=== PATIENT | female | born 1945 | race Caucasian/White ===

== ENCOUNTER 2021-08-01 16:33 | Inpatient (IN) | payer OTHER, SELFPAY ==
[~2021-08-01] VITALS: Ht 167.6 cm; Wt 49.9 kg
--- NOTE | 2021-08-01 16:35 | NUR ---
BIBA TO ER BED 6
[2021-08-01 16:37] VITALS: BP 120/64
--- NOTE | 2021-08-01 16:37 | NUR ---
75 y/o female BIBA for c/o abd pain. Pt is AOX4, able to make all needs known. Resp even and unlabored, 95% on RA. C/O 10/10 abd sharp pain at this time. + BS heard x 4, pt denies N/V/D at this time. Pt denies CP at this time. Denies any black or red stool at this time Pt arrived with IV in place, non patent, painful when flushing and unable to use at this time. Per EMS her B/P was 82/53 en route to ER. Pmhx: GI bleed, enterovesical fistula, anemia, UTI Allergies: PCN Home meds: See chart
--- NOTE | 2021-08-01 17:00 | NUR ---
HOMERO made aware that there is no IV access at this time.
[2021-08-01] MEDS ORDERED: NACL 0.9% 1,000 ML IV ONE (17:05)
[2021-08-01] MEDS ORDERED: PANTOPRAZOLE 80 MG in NACL 0.9% 100 ML IVP SCH (17:05)
--- NOTE | 2021-08-01 17:20 | NUR ---
XRAY AT PATIENT BEDSIDE
--- NOTE | 2021-08-01 17:57 | NUR ---
Lab at bedside to obtain lab specimen.
[2021-08-01 18:00] LABS: HEMATOCRIT 33.1 % (36-48); HEMOGLOBIN 10.6 g/dL (12.0-16.0); MEAN CORPUSCULAR HEMOGLOBIN 28 pg (27-31); MEAN CORPUSCULAR HGB CONC 32 g/dL (33-37); MEAN CORPUSCULAR VOLUME 87.3 fL (80-94); PLATELET COUNT (AUTO) 533 K/uL (140-450); RED BLOOD CELL COUNT(AUTO) 3.79 MIL/uL (4.20-5.40); RED CELL DISTRIBUTION WIDTH 18.4 % (11.6-13.7); WHITE BLOOD COUNT (AUTO) 21.8 K/uL (4.8-10.8)
--- NOTE | 2021-08-01 18:08 | NUR ---
Lab able to obtain blood specimens at this time.
[2021-08-01 18:27] LABS: LYMPHOCYTES % (MANUAL) 2 % (20-46)
[2021-08-01 18:28] LABS: MONOCYTES % (MANUAL) 2 % (5-12)
[2021-08-01 18:30] LABS: PROTHROMBIN TIME 10.4 secs (10.8-13.4)
[2021-08-01 18:31] LABS: ALBUMIN 2.4 g/dL (3.4-5.0); ANION GAP 16.1 (8-16); ASPARTATE AMINOTRANSFERASE 18 U/L (15-37); CARBON DIOXIDE 23.8 mmol/L (21-32); CHLORIDE 95 mmol/L (98-107); CREATININE 1.3 mg/dL (0.6-1.3); GLUCOSE 87 mg/dL (74-106); SODIUM SERUM 132 mmol/L (136-145); TOTAL BILIRUBIN 0.4 mg/dL (0.0-1.0); UREA NITROGEN, BLOOD 20 mg/dL (7-18)
[2021-08-01 18:34] LABS: POTASSIUM 2.9 mmol/L (3.5-5.1)
--- NOTE | 2021-08-01 18:39 | NUR ---
HOMERO reminded that we are unable to obtain IV access at this time
--- NOTE | 2021-08-01 19:00 | NUR ---
HOMERO Miranda at bedside to attempt to insert US guided IV, unable to obtain access at this time.
--- NOTE | 2021-08-01 19:04 | NUR ---
CT made aware that pt is ready for moss picker.
--- NOTE | 2021-08-01 19:26 | NUR ---
CALLED LOCOMOTIVE REPAIRER [facility] AND REQUEST PICC LINE FOR PATIENT
--- NOTE | 2021-08-01 19:26 | NUR ---
Pt report given to GALE Garduno. Transfer of care at this time.
--- NOTE | 2021-08-01 19:28 | NUR ---
Texted PICC RN for PICC placement. Waiting for PICC RN to text or call back
[2021-08-01] MEDS ORDERED: levoFLOXacin 500 MG TAB PO ONE (20:45)
[2021-08-01] MEDS ORDERED: HYDROcodone/APAP 5/325 MG 1 TAB TAB PO ONE (20:45)
[2021-08-01] MEDS ORDERED: levoFLOXacin 500 MG TAB ONE (22:21)
[2021-08-01] MEDS ORDERED: HYDROcodone/APAP 5/325 MG 1 TAB TAB ONE (22:21)
--- NOTE | 2021-08-01 22:48 | NUR ---
PT USED RESTROOM AND STATED SHE HAD DARK RED BLOOD IN STOOL.
[2021-08-01] MEDS ORDERED: MORPHINE SULFATE 2 MG/ML SYR IVP PRN (23:30)
[2021-08-01] MEDS ORDERED: ONDANSETRON 4 MG/2 ML VIAL IVP PRN (23:30)
[2021-08-02] MEDS ORDERED: MORPHINE SULFATE 2 MG/ML SYR IVP ONE (00:50)
--- NOTE | 2021-08-02 02:49 | NUR ---
D5/0.45 NS WAS STARTED AT 0249 AND DISCONTINUED AFTER RIGHT AC IV INFILTRATED. IV HELD UNTIL ANOTHER ACCESS CAN BE OBTAINED.
[2021-08-02] MEDS: DEXT 5% / NACL 0.45% 1,000 ML IV SCH ×2 (02:50→13:48)
--- NOTE | 2021-08-02 06:59 | NUR ---
PATIENT HAS BEEN SCREENED AND CATEGORIZED MODERATE NUTRITION RISK. PATIENT WILL BE SEEN WITHIN 3-5 DAYS OF ADMISSION. 08/05/21-08/07/21 ROMULO DIAMOND MS, RDN
[2021-08-02] MEDS ORDERED: SODIUM PHOS / POTASSIUM PHOS 1 PKT PDR PO PRN (07:10)
[2021-08-02] MEDS ORDERED: DOCUSATE SODIUM 100 MG GELCAP PO PRN (07:10)
[2021-08-02] MEDS ORDERED: MAG SULF 2000 MG/WATER PREMIX 50 ML IV PRN (07:10)
[2021-08-02] MEDS ORDERED: ONDANSETRON 4 MG/2 ML VIAL IVP PRN (07:10)
[2021-08-02] MEDS ORDERED: ACETAMINOPHEN 325 MG TAB PO PRN (07:10)
[2021-08-02] MEDS ORDERED: POTASSIUM CHLORIDE 10 MEQ TABER PO ONE (07:10)
[2021-08-02] MEDS ORDERED: POTASSIUM CHLORIDE 10 MEQ TABER PO PRN (07:10)
[2021-08-02] MEDS ORDERED: ZOLPIDEM 5 MG TAB PO PRN (07:10)
[2021-08-02 07:19] LABS: ALBUMIN 1.9 g/dL (3.4-5.0); ANION GAP 12.5 (8-16); ASPARTATE AMINOTRANSFERASE 18 U/L (15-37); CARBON DIOXIDE 25.8 mmol/L (21-32); CHLORIDE 101 mmol/L (98-107); GLUCOSE 75 mg/dL (74-106); POTASSIUM 3.3 mmol/L (3.5-5.1); SODIUM SERUM 136 mmol/L (136-145); TOTAL BILIRUBIN 0.4 mg/dL (0.0-1.0); UREA NITROGEN, BLOOD 23 mg/dL (7-18)
--- NOTE | 2021-08-02 07:29 | NUR ---
CORTNEY RAMÍREZ AT BEDSIDE FOR US GUIDED IV.
--- NOTE | 2021-08-02 07:30 | NUR ---
REPORT RECEIVED FROM GALE BURCH FOR CONTINUITY OF CARE.
--- NOTE | 2021-08-02 07:30 | NUR ---
REPORT GIVEN TO JACK BEASLEY.
[2021-08-02 07:33] LABS: BASOPHILS # (AUTO) 0.1 K/uL (0.00-0.22); BASOPHILS % (AUTO) 0.5 % (0.0-2.0); HEMATOCRIT 28.3 % (36-48); HEMOGLOBIN 9.1 g/dL (12.0-16.0); LYMPHOCYTES # (AUTO) 1.1 K/uL (2.5-16.5); LYMPHOCYTES % (AUTO) 5.5 % (20.5-51.1); MEAN CORPUSCULAR HEMOGLOBIN 28 pg (27-31); MEAN CORPUSCULAR HGB CONC 32 g/dL (33-37); MEAN CORPUSCULAR VOLUME 86.4 fL (80-94); MONOCYTES # (AUTO) 0.7 K/uL (0.8-1.0); MONOCYTES % (AUTO) 3.7 % (1.7-9.3); NEUTROPHILS # (AUTO) 17.4 K/uL (1.8-7.7); NEUTROPHILS % (AUTO) 90.3 % (42.2-75.2); PLATELET COUNT (AUTO) 662 K/uL (140-450); RED BLOOD CELL COUNT(AUTO) 3.27 MIL/uL (4.20-5.40); WHITE BLOOD COUNT (AUTO) 19.3 K/uL (4.8-10.8)
--- NOTE | 2021-08-02 07:50 | NUR ---
[place] SPECIMEN COLLECTED AND TAKEN TO LAB
[2021-08-02] MEDS ORDERED: POTASSIUM CHLORIDE 10 MEQ TABER PO SCH (07:54)
--- NOTE | 2021-08-02 08:40 | NUR ---
PATIENT GIVEN BREAKFAST, NO DISTRESS NOTED. ALL PATIENT NEEDS MET AT THIS TIME.
[2021-08-02] MEDS ORDERED: PANTOPRAZOLE 40 MG INJ VIAL IVP SCH (09:00)
[2021-08-02 10:04] LABS: PROTHROMBIN TIME 10.2 secs (10.8-13.4)
[2021-08-02 10:14] LABS: CHOL/HDL RATIO 2.4 (1-4.5); FREE T4 (FREE THYROXINE) 1.09 ng/dL (0.76-1.46); PHOSPHORUS 4.5 mg/dL (2.5-4.9); THYROID STIMULATING HORMONE 0.92 uIU/mL (0.34-3.74)
[2021-08-02] MEDS: PANTOPRAZOLE 40 MG INJ VIAL IVP SCH ×2 (10:26→23:07)
[2021-08-02] MEDS: MORPHINE SULFATE 2 MG/ML SYR IVP PRN (11:45)
[2021-08-02] MEDS: HYDROcodone/APAP 5/325 MG 1 TAB TAB PO PRN (16:12)
--- NOTE | 2021-08-02 17:37 | NUR ---
PICC LINE CONSENT OBTAINED
--- NOTE | 2021-08-02 19:24 | NUR ---
Pt report given to GALE LEA . Transfer of care at this time.
--- NOTE | 2021-08-02 19:31 | NUR ---
patient ambulated to the bathroom with assist.
--- NOTE | 2021-08-02 21:36 | NUR ---
patient ambulated to the bathroom with assist and to collect urine.
--- NOTE | 2021-08-03 00:31 | NUR ---
patient complaining of pain 10/10 lower abdominal-- will medicated patient with PRN medication.
[2021-08-03] MEDS: HYDROcodone/APAP 5/325 MG 1 TAB TAB PO PRN ×2 (00:34→15:13)
--- NOTE | 2021-08-03 01:10 | NUR ---
patient ambulated to the bathroom with assist.
--- NOTE | 2021-08-03 01:26 | NUR ---
hooked patient back on the monitors and fluids. safety measures are in place, attached to monitor and will continue to monitor patient
[2021-08-03] MEDS: DEXT 5% / NACL 0.45% 1,000 ML IV SCH ×2 (04:06→19:08)
--- NOTE | 2021-08-03 04:39 | NUR ---
Patient appears to be resting comfortably in bed- Low fowlers, eyes closed and O2 attached at 3L. Medication fluids running through. Vital Signs within normal limits. Respirations even and unlabored. No signs of distress noted. Safety measures in place, attached to the monitor and will continue to monitor patient.
--- NOTE | 2021-08-03 07:25 | NUR ---
Pt report given to Ivonne BEAUCHAMP. Transfer of care at this time.
--- NOTE | 2021-08-03 07:30 | NUR ---
REPORT RECEIVED FROM GALE LEA FOR PATIENT CONTINUITY OF CARE.
--- NOTE | 2021-08-03 08:00 | NUR ---
PATIENT AMBULATED W/ ASSIST TO RESTROOM.
[2021-08-03] MEDS: PANTOPRAZOLE 40 MG INJ VIAL IVP SCH ×2 (11:30→21:37)
[2021-08-03] MEDS: MORPHINE SULFATE 2 MG/ML SYR IVP PRN ×3 (11:30→22:34)
[2021-08-03 12:15] LABS: ALBUMIN 1.5 g/dL (3.4-5.0); ANION GAP 11.7 (8-16); ASPARTATE AMINOTRANSFERASE 9 U/L (15-37); CARBON DIOXIDE 20.7 mmol/L (21-32); CHLORIDE 102 mmol/L (98-107); GLUCOSE 86 mg/dL (74-106); MAGNESIUM 1.4 mg/dL (1.8-2.4); POTASSIUM 3.4 mmol/L (3.5-5.1); SODIUM SERUM 131 mmol/L (136-145); TOTAL BILIRUBIN 0.3 mg/dL (0.0-1.0); UREA NITROGEN, BLOOD 29 mg/dL (7-18)
[2021-08-03 12:54] LABS: BASOPHILS # (AUTO) 0.1 K/uL (0.00-0.22); BASOPHILS % (AUTO) 0.6 % (0.0-2.0); EOSINOPHILS % (AUTO) 0.1 % (0.0-4.0); HEMATOCRIT 21.6 % (36-48); MEAN CORPUSCULAR HEMOGLOBIN 28 pg (27-31); MEAN CORPUSCULAR HGB CONC 32 g/dL (33-37); MEAN CORPUSCULAR VOLUME 86.1 fL (80-94); MONOCYTES # (AUTO) 0.8 K/uL (0.8-1.0); MONOCYTES % (AUTO) 4.4 % (1.7-9.3); NEUTROPHILS # (AUTO) 17.2 K/uL (1.8-7.7); PLATELET COUNT (AUTO) 499 K/uL (140-450); RED BLOOD CELL COUNT(AUTO) 2.51 MIL/uL (4.20-5.40); RED CELL DISTRIBUTION WIDTH 17.7 % (11.6-13.7); WHITE BLOOD COUNT (AUTO) 19.2 K/uL (4.8-10.8)
[2021-08-03 13:18] LABS: LYMPHOCYTES % (AUTO) 5.2 % (20.5-51.1); NEUTROPHILS % (AUTO) 89.7 % (42.2-75.2)
--- NOTE | 2021-08-03 13:40 | NUR ---
PATIENT AMBULATED TO RESTROOM WITH ASSISTANCE
--- NOTE | 2021-08-03 13:50 | NUR ---
ASSISTED PATIENT BACK TO BEDSIDE, PROVIDED WITH WET WIPES FOR HYGIENE, ASSISTED IN POSITION OF COMFORT, SAFETY MEASURES PUT IN PLACE AND CONNECTED BACK TO BEDSIDE MONITOR.
--- NOTE | 2021-08-03 16:05 | NUR ---
SPOKE WITH PATIENT'S FOR AN UPDATE.
--- NOTE | 2021-08-03 19:25 | NUR ---
Pt report given to NITO HAMPTON. Transfer of care at this time.
--- NOTE | 2021-08-03 22:30 | NUR ---
PT DIARRHEA IN BRIEF. CHANGED BRIEF AND PERFORMED PERICARE. CHANGED SHEETS
[2021-08-03] MEDS: LEVOFLOXACIN 750 MG/D5W PREMIX 150 ML IV SCH (22:35)
--- NOTE | 2021-08-03 22:47 | NUR ---
provided pt bed
--- NOTE | 2021-08-03 22:54 | NUR ---
provided new brief, and performed pericare
--- NOTE | 2021-08-04 00:25 | NUR ---
PT DIARRHEA IN BRIEF. CHANGED BRIEF AND PERFORMED PERICARE. CHANGED SHEETS
--- NOTE | 2021-08-04 00:48 | NUR ---
PT DIARRHEA IN BRIEF. CHANGED BRIEF AND PERFORMED PERICARE. NEW DREW PROVIDED
--- NOTE | 2021-08-04 01:00 | NUR ---
contacted dr easley for immodium rx
--- NOTE | 2021-08-04 02:21 | NUR ---
Patient appears to be resting comfortably in bed. Vital Signs within normal limits. Respirations even and unlabored.
--- NOTE | 2021-08-04 06:51 | NUR ---
Patient appears to be resting comfortably in bed with eyes closed. Vital Signs within normal limits. Respirations even and unlabored.
[2021-08-04] MEDS ORDERED: LOPERAMIDE 2 MG CAP PO SCH (07:20)
[2021-08-04 07:40] LABS: BASOPHILS # (AUTO) 0.1 K/uL (0.00-0.22); BASOPHILS % (AUTO) 0.5 % (0.0-2.0); EOSINOPHILS % (AUTO) 0.1 % (0.0-4.0); HEMATOCRIT 20.8 % (36-48); LYMPHOCYTES # (AUTO) 0.5 K/uL (2.5-16.5); LYMPHOCYTES % (AUTO) 3.3 % (20.5-51.1); MEAN CORPUSCULAR HEMOGLOBIN 27 pg (27-31); MEAN CORPUSCULAR HGB CONC 32 g/dL (33-37); MEAN CORPUSCULAR VOLUME 85.6 fL (80-94); MONOCYTES # (AUTO) 0.7 K/uL (0.8-1.0); MONOCYTES % (AUTO) 4.2 % (1.7-9.3); NEUTROPHILS # (AUTO) 14.3 K/uL (1.8-7.7); NEUTROPHILS % (AUTO) 91.9 % (42.2-75.2); PLATELET COUNT (AUTO) 431 K/uL (140-450); RED BLOOD CELL COUNT(AUTO) 2.43 MIL/uL (4.20-5.40); RED CELL DISTRIBUTION WIDTH 17.4 % (11.6-13.7); WHITE BLOOD COUNT (AUTO) 15.6 K/uL (4.8-10.8)
[2021-08-04 08:16] LABS: ALBUMIN 1.5 g/dL (3.4-5.0); ANION GAP 13.9 (8-16); ASPARTATE AMINOTRANSFERASE 13 U/L (15-37); CARBON DIOXIDE 19.1 mmol/L (21-32); CHLORIDE 102 mmol/L (98-107); CREATININE 0.8 mg/dL (0.6-1.3); GLUCOSE 84 mg/dL (74-106); SODIUM SERUM 132 mmol/L (136-145); TOTAL BILIRUBIN 0.3 mg/dL (0.0-1.0); UREA NITROGEN, BLOOD 24 mg/dL (7-18)
--- NOTE | 2021-08-04 08:40 | NUR ---
DR ALEJANDRO AT BEDSIDE TO ASSESS PT. AWARE OF LABS AT THIS TIME.
[2021-08-04] MEDS: PANTOPRAZOLE 40 MG INJ VIAL IVP SCH ×2 (09:33→21:30)
[2021-08-04 09:34] LABS: MAGNESIUM 1.2 mg/dL (1.8-2.4)
[2021-08-04] MEDS: MORPHINE SULFATE 2 MG/ML SYR IVP PRN ×3 (09:34→22:44)
--- NOTE | 2021-08-04 09:36 | NUR ---
DR QUIÑONES AT BEDSIDE TO ASSESS PT
[2021-08-04 10:00] LABS: HEMOGLOBIN 6.6 g/dL (12.0-16.0)
--- NOTE | 2021-08-04 10:00 | NUR ---
CRITICAL [facility] CALLED TO DR ALEJANDRO. ORDERS ALREADY IN SYSTEM.
[2021-08-04] MEDS: DEXT 5% /NACL 0.9% 1,000 ML IV SCH ×2 (10:10→22:44)
--- NOTE | 2021-08-04 10:25 | NUR ---
PER BLOOD BANK, THERE IS A CRITICAL SHORTAGE AND OUR MD NEEDS TO REQUEST THE BLOOD IT MEDICALLLY NECESSARY. SPOKE TO DR ALEJANDRO, PT IS ACTIVELY BLEEDING(GI) THE "TRANSFUSION IS NECESSARY". FOLLOWED UP WITH BLOOD BANK AT THIS TIME FOR BLOOD TRANSFUSION.
--- NOTE | 2021-08-04 11:55 | NUR ---
Per blood bank, [facility] can send 1 unit of PRBC for this pt and it will be arriving in the afternoon.
--- NOTE | 2021-08-04 13:58 | NUR ---
Patient appears to be resting comfortably in bed. Vital Signs within normal limits. Respirations even and unlabored. SR up x2, call light in reach.
[2021-08-04] MEDS ORDERED: OCTREOTIDE ACETATE 1.25 MG in NACL 0.9% 250 ML IV SCH (16:00)
--- NOTE | 2021-08-04 16:20 | NUR ---
Dr Mckinley at bedside to get informed blood consent at bedside.
--- NOTE | 2021-08-04 16:35 | NUR ---
Blood started and verified with Ivonne at this time. VSS
--- NOTE | 2021-08-04 16:50 | NUR ---
Consent signed per Dr Mckinley and pt agreeing to administration of blood. Blood has been type and crossmatched. Blood sent from blood bank. Information on unit of blood checked against patient wristband at bedside by two nurses. All information matches. Patient or responsible democrat informed of potential complications associated with blood transfusion. Informed of possible transfusion reaction symptoms. Aware of need to notify nurse at once of itching, shortness of breath, flushing, feeling of impending doom, or other symptoms not previously present. Vital signs taken within 5 minutes prior to initiation of transfusion. RN remained with patient for first 15 minutes of transfusion at which time vital signs were re-assessed and stable. No reaction noted at this time.
--- NOTE | 2021-08-04 17:42 | NUR ---
Patient appears to be resting comfortably in bed. Vital Signs within normal limits. Respirations even and unlabored. Blood is running at this time. No s/sx of a reaction at this time. safety precautions in place. Food provided per request. Call light in reach.
--- NOTE | 2021-08-04 18:53 | NUR ---
Patient appears to be sleeping comfortably in bed. Vital Signs within normal limits. Respirations even and unlabored. Blood is running at this time. No s/sx of a reaction at this time. safety precautions in place. Food provided per request. Call light in reach.
--- NOTE | 2021-08-04 19:59 | NUR ---
Pt report given to GALE RAO. Transfer of care at this time.
--- NOTE | 2021-08-04 19:59 | NUR ---
REPORT RECEIVED FROM GALE ROBLES FOC CONTIUITY OF PT CARE AT THIS TIME.
--- NOTE | 2021-08-04 21:25 | NUR ---
PT LAYING IN BED LOCKED IN LOWEST POSITION W X1 SIDERAIL UP. PT REPORTS ABD PAIN 10/10 DENIES ANY DIZZINESS, NAUSEA, CHILLS, OR OTHER SYMPTOMS AT THIS TIME. SANDOSTATIN RUNNING TO R ARM PICC LINE ORDERED. PT ON 2L NC W O2SAT 94% DENIES SOB. PT VSS. BREATHING EVEN AND UNLABORED. NAD NOTED WILL CONTINUE TO MONITOR.
--- NOTE | 2021-08-04 22:04 | NUR ---
PT APPEARS TO BE RESTING W EYES CLOSED IN SUPINE POSITION W BREATHING EVEN AND UNLBAORED. VSS.
--- NOTE | 2021-08-04 23:15 | NUR ---
PT AWAKE READING A BOOK, VSS. NO C/O. ALL NEEDS MET.
--- NOTE | 2021-08-05 01:25 | NUR ---
PT APPEARS TO BE RESTING W EYES CLOSED IN SUPINE POSITION W HOB ELEVATED. BED LOCKED IN LOWEST POSITION W X2 SIDERAILS UP FOR PT SAFETY. BREATHING EVEN AND UNLABORED. NAD NOTED, WILL CONTINUE TO MONITOR. VSS.
--- NOTE | 2021-08-05 03:40 | NUR ---
PT C/O 10/10 ABDOMINAL PAIN NO OTHER SYMPTOMS. VSS. PT MEDICATED FOR PAIN.
--- NOTE | 2021-08-05 05:20 | NUR ---
PT APPEARS TO BE RESTING W EYES CLOSED IN SUPINE POSITION W HOB ELEVATED. BED LOCKED IN LOWEST POSITION W X2 SIDERAILS UP FOR PT SAFETY. BREATHING EVEN AND UNLABORED. NAD NOTED, WILL CONTINUE TO MONITOR. VSS. FLUIDS RUNNINGS ORDERED.
--- NOTE | 2021-08-05 07:30 | NUR ---
RECEIVED PT IN [place] AOX4. PICC LINE TO [facility] INFUSING MEDS PER ORDER, TOLERATING WELL. NSR ON MONITOR. NAD. SAFETY MAINTAINED.
--- NOTE | 2021-08-05 07:32 | NUR ---
Pt report given to GALE JEFF. Transfer of care at this time.
--- NOTE | 2021-08-05 08:45 | NUR ---
PT C/O 02/25 ABDOMINAL PAIN MEDICATED WITH MORPHINE PER ORDER. TOLERATED WELL. PT EATING IN [place] NAD. SAFETY MAINTAINED.
[2021-08-05] MEDS: PANTOPRAZOLE 40 MG INJ VIAL IVP SCH ×2 (08:56→23:23)
[2021-08-05] MEDS: MORPHINE SULFATE 2 MG/ML SYR IVP PRN (08:57)
[2021-08-05 09:08] LABS: BASOPHILS % (AUTO) 0.4 % (0.0-2.0); EOSINOPHILS # (AUTO) 0.1 K/uL (0-0.4); EOSINOPHILS % (AUTO) 0.5 % (0.0-4.0); HEMOGLOBIN 8.2 g/dL (12.0-16.0); LYMPHOCYTES # (AUTO) 0.5 K/uL (2.5-16.5); LYMPHOCYTES % (AUTO) 4.9 % (20.5-51.1); MEAN CORPUSCULAR HEMOGLOBIN 29 pg (27-31); MEAN CORPUSCULAR HGB CONC 33 g/dL (33-37); MEAN CORPUSCULAR VOLUME 87.3 fL (80-94); MONOCYTES # (AUTO) 0.6 K/uL (0.8-1.0); MONOCYTES % (AUTO) 5.9 % (1.7-9.3); NEUTROPHILS # (AUTO) 9.4 K/uL (1.8-7.7); NEUTROPHILS % (AUTO) 88.3 % (42.2-75.2); PLATELET COUNT (AUTO) 431 K/uL (140-450); RED BLOOD CELL COUNT(AUTO) 2.86 MIL/uL (4.20-5.40); RED CELL DISTRIBUTION WIDTH 17.1 % (11.6-13.7); WHITE BLOOD COUNT (AUTO) 10.6 K/uL (4.8-10.8)
[2021-08-05 09:46] LABS: ALBUMIN 1.5 g/dL (3.4-5.0); ASPARTATE AMINOTRANSFERASE 12 U/L (15-37); CHLORIDE 105 mmol/L (98-107); CREATININE 0.8 mg/dL (0.6-1.3); GLUCOSE 157 mg/dL (74-106); SODIUM SERUM 132 mmol/L (136-145); TOTAL BILIRUBIN 0.5 mg/dL (0.0-1.0); UREA NITROGEN, BLOOD 18 mg/dL (7-18)
[2021-08-05 10:21] LABS: MAGNESIUM 1.4 mg/dL (1.8-2.4)
--- NOTE | 2021-08-05 10:55 | NUR ---
SPOKE TO DR LAZARO REGARDING PT AND PLAN OF CARE. D/T COVID STATUS UNSURE IF EGD WILL BE DONE. HAS NOT SEEN PT FOR CONSULT AND STATES WILL MAKE THAT DETERMINATION WHEN HE SEES THE PT.
[2021-08-05] MEDS ORDERED: MORPHINE SULFATE 4 MG/ML SYR ONE (12:01)
[2021-08-05] MEDS: LORazepam 2 MG/ML VIAL IM/IVP PRN (12:10)
[2021-08-05] MEDS: MORPHINE SULFATE 4 MG/ML SYR IVP PRN (12:10)
--- NOTE | 2021-08-05 12:10 | NUR ---
PT CO 9/10 ABDOMINAL PAIN NEW ORDERS FOR PAIN NOTED MEDICATED PER ORDERS.
[2021-08-05] MEDS: DEXT 5% /NACL 0.9% 1,000 ML IV SCH (12:11)
--- NOTE | 2021-08-05 14:42 | NUR ---
DR LAZARO AT BEDSIDE FOR CONSULT.
[2021-08-05] MEDS ORDERED: SODIUM FERRIC GLUCONATE 125 MG in NACL 0.9% 100 ML IV SCH (15:30)
[2021-08-05] MEDS: SUCRALFATE 1 GM TAB PO SCH ×2 (17:24→23:23)
--- NOTE | 2021-08-05 17:40 | NUR ---
PT INCONTINENT OF STOOL, NO BLOOD NOTED OR DARK STOOL. CLEANED AND REPOSITIONED. BUTTOCKS RED AND SMALL STAGE 2 NOTED ON COCCYX. WOUND CARE COMPLETED.
[2021-08-05 18:29] LABS: APPEARANCE,URINE CLOUDY (CLEAR); BILIRUBIN,URINE NEGATIVE (NEGATIVE); BLOOD, URINE 2+ (NEGATIVE); COLOR,URINE YELLOW (YELLOW); LEUKOCYTE ESTERASE ,URINE 2+ (NEGATIVE); NITRITE, URINE NEGATIVE (NEGATIVE); UGLUCOSE NEGATIVE (NEGATIVE)
[2021-08-05 18:31] LABS: RBC,URINE 11-20 (MOD) /HPF (0-5); WBC,URINE TOO MANY TO COUNT /HPF (0-5)
--- NOTE | 2021-08-05 19:42 | NUR ---
PT RUCHI HOLLINGSWORTH TO BE CONTACTED FOR PT UUPDATES [phone].
--- NOTE | 2021-08-05 20:35 | NUR ---
PT HAD PASSED BM IN BED. PT CLEANED AND PROVIDED WITH JOSE CARE AND FRESH DIAPER. PT ALSO REPOSITIONED FOR COMFORT
[2021-08-05] MEDS ORDERED: AMITRIPTYLINE 10 MG TAB PO SCH (21:00)
[2021-08-05] MEDS: CITRIC ACID/SODIUM CITRATE 30 ML UDC PO SCH (21:00)
--- NOTE | 2021-08-05 22:56 | NUR ---
Patient appears to be resting in bed. Vital Signs within normal limits. Respirations even and unlabored.
[2021-08-05] MEDS: LACTULOSE 20 GM/30 ML UDC PO SCH (23:24)
[2021-08-05] MEDS: LEVOFLOXACIN 750 MG/D5W PREMIX 150 ML IV SCH (23:25)
--- NOTE | 2021-08-06 00:10 | NUR ---
PT'S DIAPER CHANGED. LINEN AND GOWN CHANGED. JOSE CARE PERFORMED.
--- NOTE | 2021-08-06 00:10 | NUR ---
PT'S DIAPER CHANGED. LINEN AND GOWN CHANGED. JOSE CARE PERFORMED. NO BLOOD IN STOOL.
[2021-08-06] MEDS: MORPHINE SULFATE 4 MG/ML SYR IVP PRN (00:53)
[2021-08-06] MEDS: LORazepam 2 MG/ML VIAL IM/IVP PRN (00:54)
[2021-08-06] MEDS: DEXT 5% /NACL 0.9% 1,000 ML IV SCH (01:18)
--- NOTE | 2021-08-06 02:00 | NUR ---
PT APPEARS TO BE RESTING. EYES ARE CLOSED, OPENS TO TOUCH. VSS. PT IS IN STABLE CONDITION. EQUAL RISE AND FALL OF CHEST WALL. BED LOCKED IN LOWEST POSITION, SIDE RAILS X2 FOR SAFETY.
--- NOTE | 2021-08-06 06:00 | NUR ---
PT APPEARS TO BE RESTING. EYES ARE CLOSED, OPENS TO SOUND. VSS. PT IN STABLE CONDITION. EQUAL RISE AND FALL OF CHEST WALL. BED LOCKED IN LOWEST POSITION, SIDE RAILS X2 FOR SAFETY.
--- NOTE | 2021-08-06 07:00 | NUR ---
URINE OUTPUT 600, YELLOW AND CLOUDY.
--- NOTE | 2021-08-06 07:34 | NUR ---
Pt report given to GALE Alcala. Transfer of care at this time.
[2021-08-06 07:39] LABS: BASOPHILS % (AUTO) 0.2 % (0.0-2.0); EOSINOPHILS # (AUTO) 0.1 K/uL (0-0.4); EOSINOPHILS % (AUTO) 0.9 % (0.0-4.0); HEMATOCRIT 24.1 % (36-48); LYMPHOCYTES # (AUTO) 0.5 K/uL (2.5-16.5); LYMPHOCYTES % (AUTO) 7.1 % (20.5-51.1); MEAN CORPUSCULAR HEMOGLOBIN 29 pg (27-31); MEAN CORPUSCULAR HGB CONC 33 g/dL (33-37); MONOCYTES # (AUTO) 0.5 K/uL (0.8-1.0); MONOCYTES % (AUTO) 8.3 % (1.7-9.3); NEUTROPHILS # (AUTO) 5.5 K/uL (1.8-7.7); NEUTROPHILS % (AUTO) 83.5 % (42.2-75.2); PLATELET COUNT (AUTO) 358 K/uL (140-450); RED BLOOD CELL COUNT(AUTO) 2.77 MIL/uL (4.20-5.40); RED CELL DISTRIBUTION WIDTH 17.3 % (11.6-13.7); WHITE BLOOD COUNT (AUTO) 6.6 K/uL (4.8-10.8)
[2021-08-06 07:58] LABS: ALBUMIN 1.4 g/dL (3.4-5.0); ANION GAP 11.1 (8-16); ASPARTATE AMINOTRANSFERASE 13 U/L (15-37); CARBON DIOXIDE 21.1 mmol/L (21-32); CHLORIDE 107 mmol/L (98-107); CREATININE 0.7 mg/dL (0.6-1.3); GLUCOSE 315 mg/dL (74-106); MAGNESIUM 1.1 mg/dL (1.8-2.4); POTASSIUM 3.2 mmol/L (3.5-5.1); SODIUM SERUM 136 mmol/L (136-145); TOTAL BILIRUBIN 0.3 mg/dL (0.0-1.0); UREA NITROGEN, BLOOD 12 mg/dL (7-18)
[2021-08-06] MEDS: LACTULOSE 20 GM/30 ML UDC PO SCH (09:00)
[2021-08-06] MEDS ORDERED: LACT10SO11 PO (09:19)
[2021-08-06] MEDS ORDERED: DOCU-299 PO (09:19)
[2021-08-06] MEDS ORDERED: SUCR1TAB56 PO (09:19)
[2021-08-06] MEDS ORDERED: AMIT10TA25 PO (09:19)
[2021-08-06] MEDS ORDERED: PANT40EC PO (09:19)
[2021-08-06] MEDS: PANTOPRAZOLE 40 MG INJ VIAL IVP SCH (09:50)
[2021-08-06] MEDS: SUCRALFATE 1 GM TAB PO SCH (09:50)
[2021-08-06] MEDS: CITRIC ACID/SODIUM CITRATE 30 ML UDC PO SCH (09:50)
[2021-08-06] MEDS: HYDROcodone/APAP 5/325 MG 1 TAB TAB PO PRN (11:09)
[2021-08-06 11:20] VITALS: BP 158/83
--- NOTE | 2021-08-06 11:20 | NUR ---
PATIENT DISCHARGED AN IN-PATIENT TELE HOLD. FC AND PICC LINE REMOVED. NO HEMATOMA/BLEEDING NOTED. MANUAL PRESSURE APPLIED FOR 10MINS. PRESSURE DRESSING APPLIED. BREATHING UNLABORED, RR 20, 02 SAT 98%. TIP INTACT. DISCHARGE PAPERS SENT HOME WITH PATIENT.
== END 2021-08-06 11:20 | disposition home or self-care (01) | DRG 377 ==
LOC: MED 16:33 → MTU 23:37
PROVIDERS: ADMIT Family Medicine; ATTEND Family Medicine
PROC: 30233M1 Transfusion of Nonautologous Plasma Cryoprecipitate into Peripheral Vein, Percutaneous Approach (ICD-10-PCS; principal; 2021-08-04)
DX: K92.2 Gastrointestinal hemorrhage, unspecified (principal); E43 Unspecified severe protein-calorie malnutrition; N17.0 Acute kidney failure with tubular necrosis; U07.1 COVID-19; E87.1 Hypo-osmolality and hyponatremia; N13.30 Unspecified hydronephrosis; E87.6 Hypokalemia; J43.9 Emphysema, unspecified; K76.0 Fatty (change of) liver, not elsewhere classified; M47.816 Spondylosis without myelopathy or radiculopathy, lumbar region; F17.210 Nicotine dependence, cigarettes, uncomplicated; E86.9 Volume depletion, unspecified; D64.9 Anemia, unspecified; Z88.0 Allergy status to penicillin; Z87.11 Personal history of peptic ulcer disease
CPT/HCPCS: 36415; 36556; 71045; 80053; 81001; 82150; 83036; 83690; 83735; 83880; 84100; 84439; 84443; 84484; 85025; 85610; 85730; 86886; 86900; 86901; 86920; 87086; 87186; 93005; 96361; 96374; 99285; C9113; J1956; J2060; J2270; J2354; J2916; J3475; J7030; P9016; Q0092